=== PATIENT | female | born 2000 | race Caucasian/White ===

== ENCOUNTER → 2019-01-29 | Outpatient (CLI) | payer OTHER | END | disposition home or self-care (01) | LOC: CFH 08:35 | PROVIDERS: ATTEND Obstetrics & Gynecology | DX: O26.892 Other specified pregnancy related conditions, second trimester (principal); N63.10 Unspecified lump in the right breast, unspecified quadrant; Z3A.19 19 weeks gestation of pregnancy; Z80.3 Family history of malignant neoplasm of breast ==

== ENCOUNTER 2019-04-30 19:44 | Outpatient (CLI) | payer OTHER ==
[~2019-04-30] VITALS: Ht 162.6 cm; Wt 68.6 kg
[2019-04-30 19:54] VITALS: BP 121/78
[2019-04-30 20:34] LABS: MICROSCOPIC INDICATED
[2019-04-30] MEDS ORDERED: PREN1TAB60 PO (20:52)
[2019-04-30] MEDS ORDERED: BETAMETHASONE 6 MG/ML, 5ML IM ONE ×2 (21:58→22:00)
== END 2019-04-30 22:54 | disposition home or self-care (01) ==
LOC: LDOP 19:44
PROVIDERS: ATTEND Obstetrics & Gynecology
DX: O46.8X3 Other antepartum hemorrhage, third trimester (principal); Z3A.32 32 weeks gestation of pregnancy
CPT/HCPCS: 59025; 76815; 81001; 87086; 96372; 99211; J0702; G0463

== ENCOUNTER 2019-05-01 21:23 | Outpatient (CLI) | payer OTHER ==
[~2019-05-01] VITALS: Ht 162.6 cm; Wt 68.6 kg
== END 2019-05-01 22:04 | disposition home or self-care (01) ==
LOC: LDOP 21:23
PROVIDERS: ATTEND Obstetrics & Gynecology
DX: Z34.93 Encounter for supervision of normal pregnancy, unspecified, third trimester (principal); Z3A.32 32 weeks gestation of pregnancy
CPT/HCPCS: 59025; 96372; 99211; J0702; G0463

== ENCOUNTER 2019-05-05 10:30 | Outpatient (CLI) | payer OTHER ==
[~2019-05-05] VITALS: Ht 162.6 cm; Wt 68.6 kg
[~2019-05-05 10:30] MED LIST: PREN1TAB60 PO
[2019-05-05 11:25] VITALS: BP 127/83
[2019-05-05 11:36] LABS: MICROSCOPIC AUTO
[2019-05-05] MEDS ORDERED: NITR100C56 PO (12:51)
== END 2019-05-05 13:31 | disposition home or self-care (01) ==
LOC: LDOP 10:30
PROVIDERS: ATTEND Obstetrics & Gynecology
DX: O42.913 Preterm premature rupture of membranes, unspecified as to length of time between rupture and onset of labor, third trimester (principal); Z3A.32 32 weeks gestation of pregnancy
CPT/HCPCS: 59025; 81001; 84112; 87081; 87086; 87147; 99211; G0463

== ENCOUNTER 2019-05-29 07:12 | Inpatient (IN) | payer OTHER ==
[~2019-05-29] VITALS: Ht 162.6 cm; Wt 76.2 kg
[~2019-05-29 07:12] MED LIST changes: +NITR100C56 PO
[2019-05-29] MEDS ORDERED: LACTATED RINGERS 1,000 ML IV SCH ×3 (08:21→15:42)
[2019-05-29] MEDS ORDERED: D5%-LACTATED RINGERS 1,000 ML IV SCH (08:21)
[2019-05-29] MEDS ORDERED: OXYTOCIN 30U/ 0.9% NaCL 500ML 500 ML IV ONE (08:21)
[2019-05-29] MEDS ORDERED: AMPICILLIN 2 GM in SODIUM CHLORIDE 0.9% 100 ML IVPB ONE (08:21)
[2019-05-29] MEDS ORDERED: OXYTOCIN 30U/ 0.9% NaCL 500ML 500 ML IV PRN (08:21)
[2019-05-29] MEDS ORDERED: NEWBORN KIT ONE (08:25)
[2019-05-29] MEDS ORDERED: OXYTOCIN 30U/ 0.9% NaCL 500ML 500 ML ONE ×2 (08:25→18:48)
[2019-05-29] MEDS ORDERED: FENTANYL PF 100 MCG/2ML IVPush PRN (08:30)
[2019-05-29] MEDS ORDERED: FENTANYL PF 100 MCG/2ML IV PRN (08:30)
[2019-05-29] MEDS ORDERED: ONDANSETRON 2MG/ML, 2ML IVPush PRN (08:30)
[2019-05-29] MEDS ORDERED: CALCIUM CARBONATE 500 MG TAB.CHEW PO PRN (08:30)
[2019-05-29] MEDS ORDERED: SODIUM CITRATE/CITRIC ACID 15 ML UDC PO PRN (08:30)
[2019-05-29 08:49] LABS: BASOPHILS # (AUTO) 0.06 x10^3/uL (0-0.3); BASOPHILS % (AUTO) 1 % (0-1); EOSINOPHILS # (AUTO) 0.08 x10^3/uL (0-0.8); EOSINOPHILS % (AUTO) 1 % (1-7); LYMPHOCYTES # (AUTO) 1.95 x10^3/uL (1-6.1); LYMPHOCYTES % (AUTO) 25 % (22-44); MD NO; MEAN CORPUSCULAR HEMOGLOBIN 30.6 pg (27.0-34.8); MEAN CORPUSCULAR VOLUME 92.7 fL (80-100); MEAN PLATELET VOLUME 8.2 fL (7.4-10.4); MONOCYTES # (AUTO) 0.64 x10^3/uL (0-1.4); MONOCYTES % (AUTO) 8 % (2-9); NEUTROPHILS # (AUTO) 5.18 x10^3/uL (1.8-8.0); NEUTROPHILS % (AUTO) 66 % (42-75); PLATELET COUNT 254 x10^3/uL (130-400); RED BLOOD COUNT 3.87 x10^6/uL (3.82-5.3); RED CELL DISTRIBUTION WIDTH 13.8 % (9.6-15.2)
[2019-05-29 08:55] VITALS: BP 130/79
[2019-05-29] MEDS: AMPICILLIN 1 GM in SODIUM CHLORIDE 0.9% 100 ML IVPB SCH ×2 (12:31→17:30)
[2019-05-29] MEDS ORDERED: FENTANYL/BUPIV./NS/PF 250 ML EPIDCONT SCH ×2 (12:36→15:42)
[2019-05-29] MEDS ORDERED: LACTATED RINGERS 1,000 ML IVBOLUS PRN ×2 (13:00→16:00)
[2019-05-29] MEDS ORDERED: EPHEDRINE 50 MG/ML, 1ML IVPush PRN ×2 (13:00→16:00)
[2019-05-29] MEDS ORDERED: FENTANYL PF 500 MCG, BUPIVACAINE/PF 0.5%, 30ML 62.5 ML in SODIUM CHLORIDE 0.9% 177.5 ML EPIDCONT SCH (13:30)
[2019-05-29] MEDS ORDERED: FENTANYL PF 100 MCG/2ML ONE (13:59)
[2019-05-29] MEDS ORDERED: NALOXONE 0.4 MG/ML, 1ML IVPush PRN (16:00)
[2019-05-29] MEDS ORDERED: MISOPROSTOL 200 MCG TABLET ONE (17:50)
[2019-05-29] MEDS ORDERED: OXYTOCIN 30U/ 0.9% NaCL 500ML 500 ML IV SCH (18:06)
[2019-05-29] MEDS ORDERED: HYDROcodone/APAP 5/325 TABLET PO PRN (18:30)
[2019-05-29] MEDS ORDERED: ACETAMINOPHEN 325 MG TABLET PO PRN (18:30)
[2019-05-29] MEDS ORDERED: METHYLERGONOVINE 0.2 MG/ML IM PRN (18:30)
[2019-05-29] MEDS ORDERED: ONDANSETRON 2MG/ML, 2ML IV PRN (18:30)
[2019-05-29] MEDS ORDERED: MISOPROSTOL 200 MCG TABLET PR PRN (18:30)
[2019-05-29] MEDS ORDERED: METOCLOPRAMIDE 5 MG/ML, 2ML IV PRN (18:30)
[2019-05-29] MEDS ORDERED: BISACODYL 10 MG SUPP PR PRN (18:30)
[2019-05-29] MEDS ORDERED: GLYCERIN ADULT SUPP PR PRN (18:30)
[2019-05-29] MEDS ORDERED: CARBOPROST TROMETHAMINE 250 MCG/ML, 1ML IM PRN (18:30)
[2019-05-29] MEDS ORDERED: ONDANSETRON 2MG/ML, 2ML ONE (19:16)
[2019-05-29 20:20] VITALS: BP 127/87
[2019-05-29] MEDS: OXYcodone/APAP 5/325MG TABLET PO PRN (23:12)
[2019-05-29] MEDS: IBUPROFEN 600 MG TABLET PO PRN (23:12)
[2019-05-30 01:40] VITALS: BP 128/85
[2019-05-30 01:50] LABS: BASOPHILS # (AUTO) 0.14 x10^3/uL (0-0.3); BASOPHILS % (AUTO) 1 % (0-1); EOSINOPHILS # (AUTO) 0.03 x10^3/uL (0-0.8); EOSINOPHILS % (AUTO) 0 % (1-7); LYMPHOCYTES # (AUTO) 1.99 x10^3/uL (1-6.1); LYMPHOCYTES % (AUTO) 13 % (22-44); MD NO; MEAN CORPUSCULAR HGB CONC 34.3 g/dL (32.4-35.8); MEAN CORPUSCULAR VOLUME 93.3 fL (80-100); MEAN PLATELET VOLUME 8.2 fL (7.4-10.4); MONOCYTES # (AUTO) 0.74 x10^3/uL (0-1.4); MONOCYTES % (AUTO) 5 % (2-9); NEUTROPHILS # (AUTO) 11.95 x10^3/uL (1.8-8.0); NEUTROPHILS % (AUTO) 81 % (42-75); PLATELET COUNT 229 x10^3/uL (130-400); RED BLOOD COUNT 3.55 x10^6/uL (3.82-5.3); RED CELL DISTRIBUTION WIDTH 13.9 % (9.6-15.2)
[2019-05-30 05:10] VITALS: BP 114/73
[2019-05-30 08:45] VITALS: BP 119/78
[2019-05-30] MEDS ORDERED: PRENATAL VIT/IRON/FA 1 EACH TABLET PO SCH (09:00)
[2019-05-30] MEDS: DOCUSATE 100 MG CAPSULE PO PRN (09:23)
[2019-05-30 12:05] VITALS: BP 115/80
[2019-05-30] MEDS: IBUPROFEN 600 MG TABLET PO PRN ×2 (13:21→21:31)
[2019-05-30 16:00] VITALS: BP 125/87
[2019-05-30] MEDS ORDERED: DIPH,PERTUSS(ACELL),TET VAC/PF NC IM-VACC ONE ×2 (20:53→21:30)
[2019-05-30 21:00] VITALS: BP 123/84
[2019-05-30] MEDS: OXYcodone/APAP 5/325MG TABLET PO PRN (21:31)
[2019-05-31 08:00] VITALS: BP 135/87
[2019-05-31] MEDS: DOCUSATE 100 MG CAPSULE PO PRN (09:42)
[2019-05-31] MEDS ORDERED: IBUP-1222 PO (11:08)
[2019-05-31] MEDS ORDERED: SENN1TAB59 PO (11:09)
[2019-05-31] MEDS: OXYcodone/APAP 5/325MG TABLET PO PRN (14:24)
[2019-05-31] MEDS: IBUPROFEN 600 MG TABLET PO PRN (14:24)
== END 2019-05-31 14:40 | disposition home or self-care (01) | DRG 805 ==
LOC: LDOP 07:12 → LDIP 07:43 → 2NW 20:09
PROVIDERS: ADMIT Obstetrics & Gynecology; ATTEND Obstetrics & Gynecology
PROC: 10E0XZZ Delivery of Products of Conception, External Approach (ICD-10-PCS; principal; 2019-05-29)
PROC: 0HQ9XZZ Repair Perineum Skin, External Approach (ICD-10-PCS; 2019-05-29)
PROC: 3E0R3BZ Introduction of Anesthetic Agent into Spinal Canal, Percutaneous Approach (ICD-10-PCS; 2019-05-29)
PROC: 00HU33Z Insertion of Infusion Device into Spinal Canal, Percutaneous Approach (ICD-10-PCS; 2019-05-29)
DX: O42.913 Preterm premature rupture of membranes, unspecified as to length of time between rupture and onset of labor, third trimester (principal); O60.14X0 Preterm labor third trimester with preterm delivery third trimester, not applicable or unspecified; Z37.0 Single live birth; O99.824 Streptococcus B carrier state complicating childbirth; O70.0 First degree perineal laceration during delivery; Z3A.36 36 weeks gestation of pregnancy
CPT/HCPCS: 36415; S0020; 85025; 86850; 86900; 89060; 90715; G0378; J0290; J2405; J3010; J2590; J7050; J7120; Q0114

== ENCOUNTER 2020-08-02 15:54 | Outpatient (CLI) | payer MEDICAID, OTHER ==
[~2020-08-02] VITALS: Ht 160 cm; Wt 76.8 kg
[~2020-08-02 15:54] MED LIST changes: +IBUP-1222 PO; +SENN1TAB59 PO
[2020-08-02 16:16] VITALS: BP 121/68
[2020-08-02 17:06] LABS: MICROSCOPIC NOT IND
[2020-08-02 17:20] LABS: CLUE CELLS NONE SEEN (NONE SEEN); WET PREP WBCS FEW (FEW)
== END 2020-08-02 17:45 | disposition home or self-care (01) ==
LOC: LDOP 15:54
PROVIDERS: ATTEND Obstetrics & Gynecology
DX: O60.03 Preterm labor without delivery, third trimester (principal); Z3A.33 33 weeks gestation of pregnancy
CPT/HCPCS: 59025; 81003; 87086; 87210; 87491; 87591; 87808

== ENCOUNTER 2020-08-06 10:29 | Outpatient (CLI) | payer MEDICAID ==
[2020-08-06 11:30] LABS: BASOPHILS % (AUTO) 0 % (0-1); EOSINOPHILS % (AUTO) 1 % (1-7); LYMPHOCYTES % (AUTO) 17 % (22-44); MEAN CORPUSCULAR HEMOGLOBIN 29.3 pg (27.0-34.8); MEAN CORPUSCULAR HGB CONC 33.5 g/dL (32.4-35.8); MEAN PLATELET VOLUME 7.5 fL (7.4-10.4); MONOCYTES % (AUTO) 7 % (2-9); NEUTROPHILS % (AUTO) 74 % (42-75); PLATELET COUNT 263 x10^3/uL (130-400); RED BLOOD COUNT 3.87 x10^6/uL (3.82-5.3); RED CELL DISTRIBUTION WIDTH 13.9 % (9.6-15.2)
[2020-08-06 11:50] LABS: MD NO
== END 2020-08-06 14:30 | disposition home or self-care (01) ==
LOC: LDOP 10:29
PROVIDERS: ATTEND Obstetrics & Gynecology
DX: O26.893 Other specified pregnancy related conditions, third trimester (principal); O60.03 Preterm labor without delivery, third trimester; Z3A.33 33 weeks gestation of pregnancy; Z67.11 Type A blood, Rh negative
CPT/HCPCS: 36415; 59025; 76815; 76819; 85025; 85460; 86900; 96372; J2790; 86850; 86870

== ENCOUNTER → 2020-09-09 | Outpatient (CLI) | payer MEDICAID | END | disposition home or self-care (01) | LOC: STAR 12:43 | PROVIDERS: ATTEND Obstetrics & Gynecology | DX: Z20.828 Contact with and (suspected) exposure to other viral communicable diseases (principal) | CPT/HCPCS: 87635 ==

== ENCOUNTER 2020-09-13 13:21 | Inpatient (IN) | payer MEDICAID ==
[~2020-09-13] VITALS: Ht 160 cm; Wt 78.5 kg
[2020-09-13] MEDS ORDERED: MISOPROSTOL 200 MCG TABLET ONE (13:26)
[2020-09-13] MEDS ORDERED: LIDOCAINE 1%, 20ML ONE (13:26)
[2020-09-13] MEDS ORDERED: NEWBORN KIT ONE (13:27)
[2020-09-13] MEDS ORDERED: OXYTOCIN 30U/ 0.9% NaCL 500ML 500 ML ONE (13:27)
[2020-09-13] MEDS ORDERED: AMPICILLIN 2 GM in SODIUM CHLORIDE 0.9% 100 ML IVPB STA (13:29)
[2020-09-13] MEDS ORDERED: TERBUTALINE 1 MG/ML, 1ML SQ PRN (13:30)
[2020-09-13] MEDS ORDERED: FENTANYL PF 100 MCG/2ML IVPush PRN (13:30)
[2020-09-13] MEDS ORDERED: ONDANSETRON 2MG/ML, 2ML IVPush PRN ×2 (13:30→21:00)
[2020-09-13] MEDS ORDERED: TERBUTALINE 1 MG/ML, 1ML IVPush PRN (13:30)
[2020-09-13] MEDS ORDERED: OXYTOCIN 30U/ 0.9% NaCL 500ML 500 ML IV ONE (13:30)
[2020-09-13] MEDS ORDERED: FENTANYL PF 100 MCG/2ML IV PRN (13:30)
[2020-09-13] MEDS ORDERED: LACTATED RINGERS 1,000 ML IV SCH ×2 (13:30→21:00)
[2020-09-13] MEDS ORDERED: D5%-LACTATED RINGERS 1,000 ML IV SCH (13:30)
[2020-09-13] MEDS ORDERED: OXYTOCIN 30U/ 0.9% NaCL 500ML 500 ML IV PRN (13:30)
[2020-09-13 14:36] LABS: BASOPHILS % (AUTO) 1 % (0-1); EOSINOPHILS % (AUTO) 1 % (1-7); LYMPHOCYTES % (AUTO) 17 % (22-44); MEAN CORPUSCULAR HEMOGLOBIN 28.3 pg (27.0-34.8); MEAN CORPUSCULAR HGB CONC 33.5 g/dL (32.4-35.8); MEAN PLATELET VOLUME 7.9 fL (7.4-10.4); MONOCYTES % (AUTO) 6 % (2-9); NEUTROPHILS % (AUTO) 76 % (42-75); PLATELET COUNT 240 x10^3/uL (130-400); RED BLOOD COUNT 3.93 x10^6/uL (3.82-5.3); RED CELL DISTRIBUTION WIDTH 14.8 % (9.6-15.2)
[2020-09-13 15:06] LABS: MD NO
[2020-09-13] MEDS ORDERED: AMPICILLIN 1 GM in SODIUM CHLORIDE 0.9% 100 ML IVPB SCH (18:00)
[2020-09-13] MEDS ORDERED: FENTANYL PF 100 MCG/2ML ONE (19:08)
[2020-09-13 19:31] VITALS: BP 122/81
[2020-09-13] MEDS ORDERED: FENTANYL/BUPIV./NS/PF 250 ML EPIDCONT ONE (20:08)
[2020-09-13] MEDS ORDERED: BUPIVACAINE 0.25% ONE (20:12)
[2020-09-13] MEDS ORDERED: EPHEDRINE 50 MG/ML, 1ML IVPush PRN (21:00)
[2020-09-13] MEDS ORDERED: LACTATED RINGERS 1,000 ML IVBOLUS PRN (21:00)
[2020-09-13] MEDS ORDERED: NALOXONE 0.4 MG/ML, 1ML IVPush PRN (21:00)
[2020-09-13] MEDS ORDERED: FENTANYL/BUPIV./NS/PF 250 ML EPIDCONT SCH (21:00)
[2020-09-13] MEDS ORDERED: DIPHENHYDRAMINE 50 MG/ML, 1ML IVPush PRN (21:00)
[2020-09-13] MEDS ORDERED: SIMETHICONE 80 MG CHEW TAB PO PRN (21:30)
[2020-09-13] MEDS ORDERED: ONDANSETRON 2MG/ML, 2ML IV PRN (21:30)
[2020-09-13] MEDS ORDERED: HYDROcodone/APAP 5/325 TABLET PO PRN ×2 (21:30)
[2020-09-13] MEDS ORDERED: MISOPROSTOL 200 MCG TABLET PR PRN (21:30)
[2020-09-13] MEDS ORDERED: METHYLERGONOVINE 0.2 MG/ML IM PRN (21:30)
[2020-09-13] MEDS ORDERED: OXYTOCIN 10 UNITS/ML, 1ML IM PRN (21:30)
[2020-09-13] MEDS: OXYTOCIN 30U/ 0.9% NaCL 500ML 500 ML IV SCH (21:30)
[2020-09-13] MEDS ORDERED: ACETAMINOPHEN 325 MG TABLET PO PRN (21:30)
[2020-09-13] MEDS ORDERED: CARBOPROST TROMETHAMINE 250 MCG/ML, 1ML IM PRN (21:30)
[2020-09-13 23:15] VITALS: BP 107/72
[2020-09-14] MEDS: IBUPROFEN 600 MG TABLET PO PRN ×4 (01:24→20:02)
[2020-09-14 03:12] VITALS: BP 112/74
[2020-09-14 06:28] LABS: BASOPHILS % (AUTO) 0 % (0-1); EOSINOPHILS % (AUTO) 1 % (1-7); LYMPHOCYTES % (AUTO) 14 % (22-44); MEAN CORPUSCULAR HEMOGLOBIN 28.4 pg (27.0-34.8); MEAN CORPUSCULAR HGB CONC 33.5 g/dL (32.4-35.8); MEAN PLATELET VOLUME 8.1 fL (7.4-10.4); MONOCYTES % (AUTO) 5 % (2-9); NEUTROPHILS % (AUTO) 80 % (42-75); PLATELET COUNT 224 x10^3/uL (130-400); RED BLOOD COUNT 3.77 x10^6/uL (3.82-5.3)
[2020-09-14 06:55] LABS: MD SCAN
[2020-09-14 07:30] VITALS: BP 113/74
[2020-09-14] MEDS: OXYTOCIN 30U/ 0.9% NaCL 500ML 500 ML IV SCH ×2 (07:30→17:30)
[2020-09-14] MEDS: PRENATAL VIT/IRON/FA 1 EACH TABLET PO SCH (08:10)
[2020-09-14] MEDS: DOCUSATE 100 MG CAPSULE PO PRN ×2 (08:10→20:02)
[2020-09-14] MEDS ORDERED: FLU VACC QS2020-21(6MOS UP)/PF 60MCG/0.5 ML SYR IM ONE (11:30)
[2020-09-14 12:20] VITALS: BP 118/82
[2020-09-14] MEDS ORDERED: DIPH,PERTUSS(ACELL),TET VAC/PF NC IM-VACC ONE ×2 (14:11→14:30)
[2020-09-14 16:25] VITALS: BP 103/63
[2020-09-14 20:00] VITALS: BP 99/62
[2020-09-15] MEDS: IBUPROFEN 600 MG TABLET PO PRN ×2 (01:47→10:16)
[2020-09-15] MEDS: OXYTOCIN 30U/ 0.9% NaCL 500ML 500 ML IV SCH (03:30)
[2020-09-15 08:00] VITALS: BP 118/85
[2020-09-15] MEDS ORDERED: SENN-92 PO (09:25)
[2020-09-15] MEDS ORDERED: IBUP-1222 PO (09:25)
[2020-09-15] MEDS: PRENATAL VIT/IRON/FA 1 EACH TABLET PO SCH (10:17)
[2020-09-15] MEDS: DOCUSATE 100 MG CAPSULE PO PRN (10:17)
== END 2020-09-15 12:30 | disposition home or self-care (01) | DRG 560 ==
LOC: LDIP 13:21 → 2NW 23:15
PROVIDERS: ADMIT Obstetrics & Gynecology; ATTEND Obstetrics & Gynecology
PROC: 10E0XZZ Delivery of Products of Conception, External Approach (ICD-10-PCS; principal; 2020-09-13)
PROC: 10907ZC Drainage of Amniotic Fluid, Therapeutic from Products of Conception, Via Natural or Artificial Opening (ICD-10-PCS; 2020-09-13)
PROC: 3E0P7VZ Introduction of Hormone into Female Reproductive, Via Natural or Artificial Opening (ICD-10-PCS; 2020-09-13)
PROC: 3E033VJ Introduction of Other Hormone into Peripheral Vein, Percutaneous Approach (ICD-10-PCS; 2020-09-13)
PROC: 3E0R3BZ Introduction of Anesthetic Agent into Spinal Canal, Percutaneous Approach (ICD-10-PCS; 2020-09-13)
PROC: 00HU33Z Insertion of Infusion Device into Spinal Canal, Percutaneous Approach (ICD-10-PCS; 2020-09-13)
PROC: 3E02340 Introduction of Influenza Vaccine into Muscle, Percutaneous Approach (ICD-10-PCS; 2020-09-14)
PROC: 3E0234Z Introduction of Serum, Toxoid and Vaccine into Muscle, Percutaneous Approach (ICD-10-PCS; 2020-09-14)
DX: O99.824 Streptococcus B carrier state complicating childbirth (principal); Z37.0 Single live birth; Z3A.39 39 weeks gestation of pregnancy; O26.893 Other specified pregnancy related conditions, third trimester; Z67.11 Type A blood, Rh negative; Z23 Encounter for immunization
CPT/HCPCS: 36415; 85025; 86592; 86850; 86870; 86900; 86922; 86923; 90686; 90715; G0378; J2405; J3010